=== PATIENT | male | born 1960 | race African-American/Black ===

== ENCOUNTER 2017-08-15 07:05 | Emergency (ER) | payer MEDICARE, OTHER ==
[2017-08-15] MEDS: IBUPROFEN 800 MG TABLET. PO (07:29)
== END 2017-08-15 07:43 | disposition home or self-care (01) ==
LOC: ER 07:05
DX: S43.402A Unspecified sprain of left shoulder joint, initial encounter (principal); I10 Essential (primary) hypertension; W01.0XXA Fall on same level from slipping, tripping and stumbling without subsequent striking against object, initial encounter; Y93.89 Activity, other specified; Y99.8 Other external cause status; Y92.89 Other specified places as the place of occurrence of the external cause
CPT/HCPCS: 99282

== ENCOUNTER 2018-04-28 23:51 | Emergency (ER) | payer MEDICARE, OTHER ==
[~2018-04-28] VITALS: Ht 170.2 cm; Wt 68.0 kg
[~2018-04-28 23:51] MED LIST: CYCL10TA2 PO; NAPR-514 PO; NAPR500T8 PO
[2018-04-29 00:25] VITALS: BP 163/92
[2018-04-29] MEDS ORDERED: FAMO-63 PO (01:44)
[2018-04-29] MEDS ORDERED: PRED50TA PO (01:44)
[2018-04-29] MEDS ORDERED: HYDR25TA PO (01:44)
--- NOTE | 2018-04-29 01:45 | PHYS DOC ---
Past Medical History Past Medical History: Cancer, Depression, Hypertension Past Surgical History: Other Additional Past Surgical Histo: cervical Alcohol Use: Occasionally Drug Use: None Adult General Chief Complaint Chief Complaint: FACE PROBLEM HPI HPI Patient is a 57 year old male who presents with facial swelling for the past several days. This began after the patient used a new hair coloring product. Patient denies any difficulty breathing. Mild itching. Patient tried treating it with rubbing alcohol which did nothing to improve the situation. Patient also took leftover penicillin from when he had a dental infection that again has not improved the situation. Patient woke up at 10:30 tonight and thought he should get seen by a doctor. [] Review of Systems Review of Systems Constitutional: Denies fever or chills [] Eyes: Denies change in visual acuity, redness, or eye pain [] HENT: Denies nasal congestion or sore throat [] Respiratory: Denies cough or shortness of breath [] Cardiovascular: No chest pain or palpitations[] GI: Denies abdominal pain, nausea, vomiting, bloody stools or diarrhea [] : Denies dysuria or hematuria [] Musculoskeletal: Denies back pain or joint pain [] Integument: See history of present illness[] Neurologic: Denies headache, focal weakness or sensory changes [] Endocrine: Denies polyuria or polydipsia [] All other systems were reviewed and found to be within normal limits, except as documented in this note. Allergies Allergies Allergies Coded Allergies Type Severity Reaction Last Updated Verified No Known Drug Allergies 07/22/16 No Physical Exam Physical Exam Constitutional: Well developed, well nourished, no acute distress, non-toxic appearance. [] HENT: Normocephalic, atraumatic, bilateral external ears normal, oropharynx moist, no oral exudates, nose normal. Patient has swelling of bilateral zygoma region. There is scaling of the skin on his forehead.[] Eyes: PERRLA, EOMI, conjunctiva normal, no discharge. [] Neck: Normal range of motion, no tenderness, supple, no stridor. [] Cardiovascular:Heart rate regular rhythm, no murmur [] Lungs & Thorax: Bilateral breath sounds clear to auscultation [] Abdomen: Bowel sounds normal, soft, no tenderness, no masses, no pulsatile masses. [] Skin: Warm, dry, no erythema, . [] Back: No tenderness, no CVA tenderness. [] Extremities: No tenderness, no cyanosis, no clubbing, ROM intact, no edema. [] Neurologic: Alert and oriented X 3, normal motor function, normal sensory function, no focal deficits noted. [] Psychologic: Affect normal, judgement normal, mood normal. [] Current Patient Data Vital Signs Vital Signs Date Time Temp Pulse Resp B/P (MAP) Pulse Ox O2 Delivery O2 Flow Rate FiO2 04/29/18 00:25 97.0 70 16 163/92 (115) 98 Room Air 97.0 EKG EKG [] Radiology/Procedures Radiology/Procedures [] Course & Med Decision Making Course & Med Decision Making Pertinent Labs and Imaging studies reviewed. (See chart for details) Medical decision making: There is no evidence of anaphylaxis, no Quick- Darvin syndrome, no staph scalded skin syndrome, no toxic epidermal necrolysis. [] Dragon Disclaimer Dragon Disclaimer This electronic medical record was generated, in whole or in part, using a voice recognition dictation system. Departure Departure Impression: Primary Impression: Allergic reaction Disposition: HOME, SELF-CARE Condition: IMPROVED Referrals: NO PCP (PCP) Patient Instructions: Rash Additional Instructions: Follow-up with your regular doctor in 2 days. If you do not have regular doctor a list of local clinics will be provided for you. Return to the ER if worsening swelling, difficulty breathing, or any other concerns. Scripts Famotidine (PEPCID) 20 Mg Tablet 20 MG PO BID for 7 Days, #14 TAB Prov: MAGGI MCDOWELL DO 04/29/18 Prednisone (PREDNISONE) 50 Mg Tablet 50 MG PO DAILY for 7 Days, #7 TAB Prov: MAGGI MCDOWELL DO 04/29/18 Hydroxyzine Hcl (HYDROXYZINE HCL) 25 Mg Tablet 25 MG PO QID, #30 TAB Prov: MAGGI MCDOWELL DO 04/29/18 Problem Qualifiers Primary Impression: Allergic reaction Encounter type: initial encounter Qualified Codes: T78.40XA - Allergy, unspecified, initial encounter MAGGI MCDOWELL DO Apr 29, 2018 01:45
== END 2018-04-29 01:51 | disposition home or self-care (01) ==
LOC: ER 23:51
DX: T78.40XA Allergy, unspecified, initial encounter (principal); F32.9 Major depressive disorder, single episode, unspecified; I10 Essential (primary) hypertension; X58.XXXA Exposure to other specified factors, initial encounter
CPT/HCPCS: 99283

== ENCOUNTER 2018-06-03 10:39 | Emergency (ER) | payer MEDICARE, MEDICAID ==
[~2018-06-03] VITALS: Ht 170.2 cm; Wt 68.9 kg
[~2018-06-03 10:39] MED LIST changes: +FAMO-63 PO; +HYDR25TA PO; +PRED50TA PO
[2018-06-03 10:45] VITALS: BP 143/89
[2018-06-03] MEDS ORDERED: ERYT1OIN6 OP (11:10)
--- NOTE | 2018-06-03 11:10 | PHYS DOC ---
Past Medical History Past Medical History: Cancer, Depression, Hypertension Past Surgical History: Other Additional Past Surgical Histo: cervical Smoking: Cigarettes Alcohol Use: Occasionally Drug Use: None Adult General Chief Complaint Chief Complaint: EYE PROBLEMS HPI HPI Patient is a 57 year old male who presents with right eye redness, watery drainage, and photophobia. This is been present for the past 3 days. Patient denies any change in visual acuity. Denies any metal on metal hammering or grinding. Lites seems to make symptoms worse. Darkness makes little bit better. Denies any fever. Denies wearing contacts. Describes the discomfort is an achy and grittiness[] Review of Systems Review of Systems Constitutional: Denies fever or chills [] Eyes: See history of present illness[] HENT: Denies nasal congestion or sore throat [] Respiratory: Denies cough or shortness of breath [] Cardiovascular: No chest pain or palpitations[] GI: Denies abdominal pain, nausea, vomiting, bloody stools or diarrhea [] : Denies dysuria or hematuria [] Musculoskeletal: Denies back pain or joint pain [] Integument: Denies rash or skin lesions [] Neurologic: Denies headache, focal weakness or sensory changes [] Endocrine: Denies polyuria or polydipsia [] All other systems were reviewed and found to be within normal limits, except as documented in this note. Allergies Allergies Allergies Coded Allergies Type Severity Reaction Last Updated Verified No Known Drug Allergies 07/22/16 No Physical Exam Physical Exam Constitutional: Well developed, well nourished, no acute distress, non-toxic appearance. [] HENT: Normocephalic, atraumatic, bilateral external ears normal, oropharynx moist, no oral exudates, nose normal. [] Eyes: PERRLA, EOMI, conjunctiva injected on the right side with limbic sparing. Fundus is normal. Anterior chamber is clearno cell no flare. Watery discharge. [] Neck: Normal range of motion, no tenderness, supple, no stridor. [] Cardiovascular:Heart rate regular rhythm, no murmur [] Lungs & Thorax: Bilateral breath sounds clear to auscultation [] Abdomen: Not examined[] Skin: Warm, dry, no erythema, no rash. [] Back: No tenderness, no CVA tenderness. [] Extremities: No tenderness, no cyanosis, no clubbing, ROM intact, no edema. [] Neurologic: Alert and oriented X 3, normal motor function, normal sensory function, no focal deficits noted. [] Psychologic: Affect normal, judgement normal, mood normal. [] Current Patient Data Vital Signs Vital Signs Date Time Temp Pulse Resp B/P (MAP) Pulse Ox O2 Delivery O2 Flow Rate FiO2 06/03/18 10:45 98.3 93 18 143/89 (107) 98 Room Air 98.3 EKG EKG [] Radiology/Procedures Radiology/Procedures [] Course & Med Decision Making Course & Med Decision Making Pertinent Labs and Imaging studies reviewed. (See chart for details) Medical decision making: Patient appears to have conjunctivitis of the right eye. There is no evidence of foreign body, uveitis, narrow angle closure glaucoma[] Dragon Disclaimer Dragon Disclaimer This electronic medical record was generated, in whole or in part, using a voice recognition dictation system. Departure Departure Impression: Primary Impression: Conjunctivitis of right eye Disposition: HOME, SELF-CARE Condition: IMPROVED Referrals: NO PCP (PCP) Patient Instructions: Conjunctivitis (Viral and Bacterial) Additional Instructions: Follow-up with your regular doctor in 2 days. If you do not have a primary care physician, a list of local clinics will be provided for you. Return to the ER if worsening discomfort or any other concerns. Scripts Erythromycin Base (Erythromycin) 1 Gm Oint...g. 1 [facility] Q[facility] 5 [facility] Prov: MAGGI MCDOWELL 06/03/18 Problem Qualifiers Primary Impression: Conjunctivitis of right eye Conjunctivitis type: acute Acute conjunctivitis type: unspecified Qualified Codes: H10.31 - Unspecified acute conjunctivitis, right eye JOSE MIGUEL MCDOWELLRONNIE BURK Jun 03, 2018 11:10
== END 2018-06-03 11:14 | disposition home or self-care (01) ==
LOC: ER 10:39
DX: H10.31 Unspecified acute conjunctivitis, right eye (principal); I10 Essential (primary) hypertension; F17.210 Nicotine dependence, cigarettes, uncomplicated
CPT/HCPCS: 99283